=== PATIENT | female | born 1985 | race Caucasian/White ===

== ENCOUNTER → 2016-08-09 | Outpatient (CLI) | payer BC ==
[~2016-08-09] MED LIST: SYNTHROID50 MCG PO; VITAMIN D1000 UNI1 PO
== END ==
LOC: LAB 09:38
DX: Z51.81 Encounter for therapeutic drug level monitoring (principal); Z79.899 Other long term (current) drug therapy
CPT/HCPCS: 36415; 84439; 84443

== ENCOUNTER → 2016-09-23 | Day surgery (SDC) | payer BC ==
[~2016-09-23] VITALS: Ht 162.6 cm; Wt 68.0 kg
== END | disposition home or self-care (01) ==
LOC: OR 07:26
PROVIDERS: Internal Medicine Gastroenterology
PROC: 0D728ZZ Dilation of Middle Esophagus, Via Natural or Artificial Opening Endoscopic (ICD-10-PCS; 2016-09-23)
PROC: 0D738ZZ Dilation of Lower Esophagus, Via Natural or Artificial Opening Endoscopic (ICD-10-PCS; principal; 2016-09-23 11:45)
DX: K22.2 Esophageal obstruction (principal); R73.03 Prediabetes; E66.3 Overweight; Z88.0 Allergy status to penicillin; Z98.890 Other specified postprocedural states; Z79.899 Other long term (current) drug therapy; Z90.49 Acquired absence of other specified parts of digestive tract
CPT/HCPCS: 84703; J2250; J3010; J7030

== ENCOUNTER → 2016-10-01 | Outpatient (CLI) | payer BC | LOC: KOH-I 09-30 10:00 | DX: R59.9 Enlarged lymph nodes, unspecified (principal); J34.89 Other specified disorders of nose and nasal sinuses | CPT/HCPCS: 70491; Q9962 ==

== ENCOUNTER → 2022-01-09 | Outpatient (CLI) | payer BC ==
[~2022-01-09] MED LIST changes: +ASPRIN PO; +DOSS PO; +PERCOCET 7.5-31 EACH PO; +ZOFRAN4 MG PO
== END ==
LOC: HEART CORB 10:06
DX: R06.02 Shortness of breath (principal); R55 Syncope and collapse; I07.1 Rheumatic tricuspid insufficiency